=== PATIENT | female | born 1995 | race Caucasian/White ===

== ENCOUNTER 2017-02-12 13:57 | Inpatient (IN) ==
[2017-02-12] MEDS ORDERED: LACTATED RINGERS 1,000 ML IV STA (14:03)
[2017-02-12 14:58] LABS: Basophils % 0.3 % (0.0-0.8); Eosinophils # 0.1 10*3/uL (0.0-0.87); Eosinophils % 0.9 % (0.00-10.9); Hemoglobin 15.4 GM/DL (12.0-16.0); Immature Granulocytes % 0.6 %; Immature Granulocytes Absolute 0.08 #; Lymphocytes # 1.8 10*3/uL (1.4-4.0); Lymphocytes % 12.9 % (21.3-54.2); Mean Corpuscular HGB Conc 33.5 GM/DL (32-36); Mean Corpuscular Hemoglobin 30 PG (27-34); Mean Corpuscular Volume 90.9 FL (87-102); Mean Platelet Volume 10.1 FL (9.6-12.0); Monocytes # 0.7 10*3/uL (0.11-0.8); Monocytes % 5.1 % (1.7-12.7); Neutrophils # 11.2 10*3/uL (1.4-7.4); Neutrophils % 80.2 % (38.7-73.9); Platelet Count 258 T/CUMM (130-400); Red Blood Count 5.06 MC/CUMM (3.8-5.5); Red Cell Distribution Width 13.1 % (9.3-17.3)
[2017-02-12 15:07] LABS: PT Patient Result 10.3 SECS; Partial Thromboplastin Time 23.5 SECS (0-40)
[2017-02-12] MEDS ORDERED: ONDANSETRON 4 MG/2 ML VIAL IV STA (15:07)
[2017-02-12] MEDS ORDERED: MORPHINE 2 MG/1 ML SYRINGE IV STA (15:07)
[2017-02-12] MEDS ORDERED: MORPHINE 2 MG/1 ML SYRINGE ONE (15:12)
[2017-02-12] MEDS ORDERED: ONDANSETRON 4 MG/2 ML VIAL ONE (15:12)
[2017-02-12 15:17] LABS: Alanine Aminotransferase 36 U/L (13-56); Albumin 3.9 G/DL (3.4-5.0); Alkaline Phosphatase 93 U/L (45-117); Amylase 42 U/L (25-115); Aspartate Amino Transferase 19 U/L (0-37); Blood Urea Nitrogen 10 MG/DL (7-18); Glucose 108 MG/DL (74-106); Osmolality,Calculated 280.3 MOS/KG (273-304); Sodium 141 MMOL/L (136-145); Total Protein 7.5 G/DL (6.4-8.3)
[2017-02-12] MEDS ORDERED: ceFAZolin 1,000 MG VIAL ONE (15:49)
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
[2017-02-12] MEDS ORDERED: CLINDAMYCIN INJ 900 MG in PREMIX 1 EACH IV ONE (16:51)
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
[2017-02-12] MEDS ORDERED: METOCLOPRAMIDE 10 MG/2 ML VIAL IV STA (17:04)
[2017-02-12] MEDS ORDERED: CITRIC ACID/SODIUM CITRATE 30 ML UDCUP ONE ×2 (17:17→22:28)
[2017-02-12] MEDS ORDERED: METOCLOPRAMIDE 10 MG/2 ML VIAL ONE (18:25)
[2017-02-12] MEDS ORDERED: CLINDAMYCIN INJ 50 ML IV ONE (18:25)
[2017-02-12] MEDS ORDERED: HYDROmorphone 2 MG/1 ML VIAL IV ONE (18:36)
[2017-02-12] MEDS ORDERED: HYDROmorphone 2 MG/1 ML VIAL ONE (18:37)
[2017-02-12] MEDS ORDERED: ONDANSETRON 4 MG/2 ML VIAL IV PRN (19:38)
[2017-02-12] MEDS ORDERED: ACETAMINOPHEN 325 MG TABLET PO PRN (19:38)
[2017-02-12] MEDS: LACTATED RINGERS 1,000 ML IV SCH (21:05)
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
[2017-02-12] MEDS ORDERED: fentaNYL 100 MCG/2 ML VIAL ONE (22:20)
[2017-02-12] MEDS ORDERED: MIDAZOLAM 2 MG/2 ML VIAL ONE (22:20)
[2017-02-12] MEDS ORDERED: SEVOFLURANE 1 UNIT/15 MINUTE INH ONE (22:20)
[2017-02-12] MEDS ORDERED: PROPOFOL 200 MG/20 ML VIAL IV ONE ×2 (22:20→22:21)
[2017-02-12] MEDS ORDERED: LACTATED RINGERS 1,000 ML IV ONE (22:21)
[2017-02-12] MEDS ORDERED: SUCCINYLCHOLINE 200 MG/10 ML VIAL ONE (22:21)
[2017-02-12] MEDS ORDERED: ACETAMINOPHEN 1,000 MG/100 ML VIAL IV ONE (22:21)
[2017-02-12] MEDS ORDERED: KETOROLAC 30 MG/1 ML VIAL ONE (22:21)
--- NOTE | 2017-02-12 22:39 | Anesthesia Post-Op ---
Anesthesia Post OP - Post Ansesthetic Evaluation Patient seen in post op: Yes Resp: within normal limits CV: within normal limits Mental: within normal limits Temp: within normal limits Erid-Ne-Edsiuprpx: within normal limits Nausea and Vomiting: within normal limits Pain: within normal limits
[2017-02-12] MEDS: HYDROmorphone 2 MG/1 ML VIAL IV PRN (23:22)
[2017-02-13] MEDS: LACTATED RINGERS 1,000 ML IV SCH (01:08)
[2017-02-13] MEDS: KETOROLAC 15 MG/1 ML VIAL IV SCH ×5 (01:13→20:00)
[2017-02-13] MEDS: HYDROmorphone 2 MG/1 ML VIAL IV PRN ×5 (04:45→23:50)
[2017-02-13] MEDS: PANTOPRAZOLE 40 MG TABLET PO SCH (08:31)
[2017-02-13] MEDS: SERTRALINE 25 MG TABLET PO SCH (08:32)
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
[2017-02-13] MEDS: ENOXAPARIN 40 MG/0.4 ML SYRINGE SUBCUT SCH (12:35)
[2017-02-14] MEDS: KETOROLAC 15 MG/1 ML VIAL IV SCH ×4 (02:53→19:51)
[2017-02-14] MEDS: HYDROmorphone 2 MG/1 ML VIAL IV PRN ×3 (06:56→21:17)
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
[2017-02-14] MEDS: PANTOPRAZOLE 40 MG TABLET PO SCH (09:02)
[2017-02-14] MEDS: SERTRALINE 25 MG TABLET PO SCH ×2 (09:02→09:05)
[2017-02-14] MEDS ORDERED: HYDROmorphone 2 MG/1 ML VIAL IV ONE (09:25)
[2017-02-14] MEDS: ENOXAPARIN 40 MG/0.4 ML SYRINGE SUBCUT SCH (13:08)
[2017-02-14] MEDS: LACTATED RINGERS 1,000 ML IV SCH (14:15)
[2017-02-15] MEDS: KETOROLAC 15 MG/1 ML VIAL IV SCH ×3 (01:57→13:42)
[2017-02-15] MEDS: HYDROmorphone 2 MG/1 ML VIAL IV PRN ×3 (06:01→15:04)
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
[2017-02-15] MEDS: PANTOPRAZOLE 40 MG TABLET PO SCH (08:42)
[2017-02-15] MEDS: SERTRALINE 25 MG TABLET PO SCH (08:42)
[2017-02-15] MEDS: ENOXAPARIN 40 MG/0.4 ML SYRINGE SUBCUT SCH (11:03)
[2017-02-15 11:23] VITALS: BP 151/92
[2017-02-15] MEDS ORDERED: PHENOL 1.4% THROAT SPRAY 177 ML BOTTLE PO PRN (11:33)
[2017-02-15] MEDS ORDERED: VYVANSE PO SCH (21:00)
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
== END 2017-02-15 16:04 | disposition home or self-care (01) | DRG 571 ==
LOC: EDBD → EDUNIT# → N.ED 13:57 → N.EDINP 13:57 → N.3E 17:02
PROVIDERS: ADMIT Surgery; ATTEND Surgery